=== PATIENT | male | born 1965 | race Caucasian/White ===

== ENCOUNTER 2025-04-22 13:34 | Emergency (ER) | payer OTHER, SELFPAY ==
[2025-04-22 13:35] VITALS: BP 122/86
--- NOTE | 2025-04-22 14:59 | ED.GENMED ---
History of Present Illness
General
Chief Complaint: Musculo-Skeletal Complaint
Time Seen by Provider: 04/22/25 14:26
History of Present Illness
History of Present Illness:
59-year-old male presents the emergency department for evaluation of right elbow pain and swelling for the past 2 to 3 days. Denies any fevers or chills. Denies any trauma to the elbow.
Past History
Past History
ED Past Medical History: None
ED Past Surgical History: Orthopedic
Social History
Tobacco: Smoker
Alcohol: Occasional
Drug: None
Personal: Single
Review of Systems
Review of Systems
Allergies reviewed?: Yes
All Other Systems: ROS reviewed and negative except as documented in HPI and ROS
Phy Exam
Physical Exam
Physical Exam:
GEN: Well appearing, NAD, WDWN
HEENT: Oral mucosa moist, no scleral icterus
Cardiac: Regular rate
Lung: No respiratory distress, no tachypnea
MSK: Moderate focal swelling to the right olecranon bursa with mild surrounding erythema, normal range of motion of the right elbow with no elbow effusion
Skin: Good color, no pallor or jaundice, no rashes
Neuro: AO x3, moves all extremities freely
Psych: Calm, cooperative
Course
Orders/Labs/Results
Orders:
Orders
04/22/25 15:04
Sulfamethox./Trimethoprim Ds [Bactrim Ds 800 mg/160 mg] 1 tablet PO NOW STA
04/22/25 15:13
Body Fluid Cell Count Urgent
What is the Body Fluid: R olecranon bursa
Date Specimen was Collected: 04/22/25
Time Specimen was Collected: 15:08
Fluid Culture with Gram Stain Urgent
NEGRITA Source: Bursa
Specimen Description:
Date Specimen was Collected: 04/22/25
Time Specimen was Collected: 15:08
Comment: R olecranon
Vital Signs
Initial and Last Documented VS:
Initial Vital Signs
Temp Pulse Resp BP Pulse Ox
98.8 F 81 18 122/86 97
04/22/25 13:35 04/22/25 13:35 04/22/25 13:35 04/22/25 13:35 04/22/25 13:35
Last Documented Vital Signs
Temp Pulse Resp BP Pulse Ox
98.8 F 81 18 122/86 97
04/22/25 13:35 04/22/25 13:35 04/22/25 13:35 04/22/25 13:35 04/22/25 15:02
Procedures
Incision/Drainage/Joint Aspiration
right olecranon bursa:
Anethesia: ethyl chloride
Preparation: cleaned with Hibiclens
Type of procedure: aspiration
Nature of site: other (bursa)
Description of abscess: greater than 3cm
How much fluid was obtained?: number in mls (12mL)
Fluid description: straw colored and blood tinged
Treatment: bandaid applied
MDM/Problems Addressed
MDM/Problems Addressed:
Elbow was aspirated for approximately 12 cc of straw-colored blood-tinged fluid, this likely indicates associated cellulitis with reactive bursitis. 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
*Pulse Oximetry
SaO2: 97
Oxygen Mode of Delivery: Room air
Patient hypoxic: no
*Critical Care Note
Total Time (30-74mins, 75-104mins- exclusive of procedures): Not Applicable
ED Attending Note
-
Portions of this chart may have been created with voice recognition software.� Occasional wrong word or��sound alike� substitutions may have occurred due to the inherent limitations of voice recognition software.
Discharge Plan
Departure
Patient Disposition: Home (Routine Discharge)
Date of Disposition: 04/22/25
Time of Disposition: 15:03
Patient with high blood pressure during this ER visit?: No
Discharge Problem:
Olecranon bursitis, right elbow, Cellulitis of arm, right
Instructions: Bursitis - ED (DC)
Prescriptions:
New
sulfamethoxazole-trimethoprim [Bactrim DS] 800-160 mg tablet
1 tab PO Q12H Qty: 20 0RF
No Action
cephalexin 500 MG capsule
1,000 mg PO Q8H Qty: 30 0RF
Referrals:
Ángel Dolan PA [Family Provider, Family Practice]
Interventions
Interventions:
*Risk Screen - Suicide Last Done: 04/22/25 13:37
*General Assessment Last Done: 04/22/25 13:37
*Neglect/Abuse Screening Last Done: 04/22/25 13:37
*ED COVID-19 Vaccine History Last Done: 04/22/25 13:37
*Nursing Disposition Last Done: 04/22/25 15:24
ED-Musculoskeletal Assessment Last Done: 04/22/25 15:05
Discharge Date and Time
Discharge Date/Time: 04/22/25 15:24
Print Language: LITHUANIAN
[2025-04-22] MEDS: BACTRIM DS 800 MG/160 MG 1 TABLET PO (15:11)
[2025-04-22 15:47] LABS: Body Fluid Second Tech CF
== END 2025-04-22 15:24 | disposition home or self-care (01) ==
LOC: EMR 13:34
PROVIDERS: Physician Assistant; EMERGENCY PHYSICIAN Emergency Medicine; FAMILY PHYSICIAN Physician Assistant
DX: M70.21 Olecranon bursitis, right elbow (principal); L03.113 Cellulitis of right upper limb; F17.200 Nicotine dependence, unspecified, uncomplicated; Z86.14 Personal history of Methicillin resistant Staphylococcus aureus infection
CPT/HCPCS: 99283; 23931; 87015; 87070; 87205; 89051

== ENCOUNTER 2025-06-03 11:31 | Emergency (ER) | payer OTHER, SELFPAY ==
[2025-06-03 11:37] VITALS: BP 140/88
--- NOTE | 2025-06-03 13:20 | ED.SKININJ ---
HPI-Injury
General
Chief Complaint: Skin Surface Trauma
Source: patient
Exam Limitations: none
Time Seen by Provider: 06/03/25 13:14
History of Present Illness-Injury
Initial Injury comments:
59-year-old male presents with laceration left index finger he sustained last night using a table saw. He notes persistent bleeding. He is not anticoagulated. Last tetanus vaccine unknown.
Past History
Past History
ED Past Medical History: None
ED Past Surgical History: Orthopedic
Social History
Tobacco: Smoker
Alcohol: Occasional
Drug: None
Personal: Single
Phy Exam
Physical Exam
Physical Exam:
General: Well-appearing male no acute respiratory distress
HEENT: Normocephalic atraumatic
Skin: 2 cm laceration distal volar portion left index finger that follows the path of the edge of the nail. No current bleeding mild surrounding swelling edges are ragged slightly tender. He is able to flex and extend at the DIP joint
Neurologic exam: Good sensation left index finger
Course
Orders/Labs/Results
Orders:
Orders
06/03/25 13:19
Tetanus/Diphth/Acelpertussis [Adacel] 0.5 ml IM .ONCE ONE
CR Finger(s)/thumb Min 2 Vw Lt Urgent
Comment:
Reason For Exam: laceration
Vital Signs
Initial and Last Documented VS:
Initial Vital Signs
Temp Pulse Resp BP Pulse Ox
98.3 F 78 17 140/88 98
06/03/25 11:37 06/03/25 11:37 06/03/25 11:37 06/03/25 11:37 06/03/25 11:37
Last Documented Vital Signs
Temp Pulse Resp BP Pulse Ox
98.3 F 78 17 140/88 98
06/03/25 11:37 06/03/25 11:37 06/03/25 11:37 06/03/25 11:37 06/03/25 13:21
MDM/Problems Addressed
Differential Diagnosis Includes:
[place] laceration left index finger question underlying bony involvement x-rays pending will soak with saline and Betadine. Given the elapsed time no indication for sutures at this time
*Pulse Oximetry
SaO2: 98
Oxygen Mode of Delivery: Room air
Patient hypoxic: no
*Critical Care Note
Total Time (30-74mins, 75-104mins- exclusive of procedures): Not Applicable
Update Note
Update Note:
Patient left the emergency department before receiving x-rays or his tetanus vaccine.
ED Attending Note
-
Portions of this chart may have been created with voice recognition software.� Occasional wrong word or��sound alike� substitutions may have occurred due to the inherent limitations of voice recognition software.
Discharge Plan
Departure
Patient Disposition: Elopement
Date of Disposition: 06/03/25
Time of Disposition: 14:26
Patient with high blood pressure during this ER visit?: No
Discharge Problem:
Laceration
Prescriptions:
No Action
cephalexin 500 MG capsule
1,000 mg PO Q8H Qty: 30 0RF
sulfamethoxazole-trimethoprim [Bactrim DS] 800-160 mg tablet
1 tab PO Q12H Qty: 20 0RF
Referrals:
Ángel Dolan PA [Family Provider, Family Practice]
Interventions
Interventions:
*Risk Screen - Suicide Last Done: 06/03/25 11:37
*General Assessment Last Done: 06/03/25 11:37
*Neglect/Abuse Screening Last Done: 06/03/25 11:37
*ED COVID-19 Vaccine History Last Done: 06/03/25 11:37
*ED Influenza Vaccine History Last Done: 06/03/25 11:37
Discharge Date and Time
Print Language: NEPALI
== END 2025-06-03 14:25 | disposition left against medical advice (07) ==
LOC: EMR 11:31
PROVIDERS: EMERGENCY PHYSICIAN Emergency Medicine; FAMILY PHYSICIAN Physician Assistant
DX: S61.211A Laceration without foreign body of left index finger without damage to nail, initial encounter (principal); W27.0XXA Contact with workbench tool, initial encounter; F17.200 Nicotine dependence, unspecified, uncomplicated; Z53.29 Procedure and treatment not carried out because of patient's decision for other reasons
CPT/HCPCS: 99282